=== PATIENT | male | born 1990 | race Caucasian/White ===

== ENCOUNTER 2023-10-13 17:17 | Emergency (ER) | payer SELFPAY ==
[~2023-10-13] VITALS: Ht 177.8 cm; Wt 85.0 kg
[2023-10-13 17:19] VITALS: BP 160/94; PULSE 116; RESP 18; TEMP 98.4; O2SAT 99
== END 2023-10-13 17:58 | disposition left against medical advice (07) ==
LOC: ER 17:17
DX: R68.89 Other general symptoms and signs (principal); Z53.21 Procedure and treatment not carried out due to patient leaving prior to being seen by health care provider
CPT/HCPCS: 99283